=== PATIENT | female | born 1995 | race Caucasian/White ===

== ENCOUNTER 2017-03-09 03:08 | Inpatient (IN) | payer MEDICAID, OTHER ==
[~2017-03-09] VITALS: Ht 165.1 cm; Wt 47.2 kg
[~2017-03-09 03:08] MED LIST: CYCL-36 PO; OXYC1SOL5 PO; RIVA10 PO; WALKER STANDARD; Z.0.WHEELELR
[2017-03-09 03:58] LABS: AUTOMATED NEUTROPHIL # 4.2 TH/MM3 (1.8-7.7); BASOPHIL # 0.1 TH/MM3 (0-0.2); BASOPHIL % 0.8 % (0.0-2.0); EOSINOPHIL # 0.2 TH/MM3 (0-0.4); EOSINOPHIL % 2.3 % (0.0-4.0); HEMATOCRIT 38.3 % (35.0-46.0); HEMO FLAGS DIFF FINAL; LYMPH % 44.8 % (9.0-44.0); LYMPHOCYTE # 4.3 TH/MM3 (1.0-4.8); MEAN CELL VOLUME 97.8 FL (80.0-100.0); MEAN CORPUSCULAR HEMOGLOBIN 33.1 PG (27.0-34.0); MEAN CORPUSCULAR HGB CONC 33.9 % (32.0-36.0); MONO % 7.6 % (0.0-8.0); NEUT % 44.5 % (16.0-70.0); PLATELET COUNT 330 TH/MM3 (150-450); RED BLOOD COUNT 3.91 MIL/MM3 (4.00-5.30); WHITE BLOOD COUNT 9.5 TH/MM3 (4.0-11.0)
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
[2017-03-09 04:07] VITALS: BP 121/81; PULSE 96; RESP 18; TEMP 98.6; O2SAT 98
[2017-03-09 04:17] LABS: BICARBONATE 27.8 MEQ/L (21.0-32.0); POTASSIUM 3.5 MEQ/L (3.5-5.1)
[2017-03-09] MEDS ORDERED: LORazepam 1 MG TAB PO ONE (06:30)
[2017-03-09 07:34] VITALS: BP 124/79; PULSE 88; RESP 15; O2SAT 97
[2017-03-09] MEDS ORDERED: NICOTINE 21 MG/24 HR PATCH T-DERMAL ONE (08:15)
[2017-03-09] MEDS ORDERED: LORazepam 2 MG TAB PO PRN (10:30)
[2017-03-09] MEDS ORDERED: ACETAMINOPHEN 325 MG TAB PO PRN (10:30)
[2017-03-09] MEDS ORDERED: ALUMINUM/MAGNESIUM/SIMETH 30 ML CUP PO PRN (10:30)
[2017-03-09] MEDS ORDERED: LORazepam 1 MG TAB PO PRN (10:30)
[2017-03-09] MEDS ORDERED: BENZTROPINE MESYLATE 1 MG TAB PO PRN (10:30)
[2017-03-09] MEDS ORDERED: FLUMAZENIL 0.5 MG/5 ML VIAL IV PUSH PRN (10:30)
[2017-03-09] MEDS ORDERED: LORazepam 2 MG/ML VIAL IV PUSH PRN ×4 (10:30)
[2017-03-09] MEDS ORDERED: diphenhydrAMINE HCL 50 MG CAP PO PRN (10:30)
[2017-03-09] MEDS ORDERED: MAGNESIUM HYDROXIDE SUSP 30 ML CUP PO PRN (10:30)
[2017-03-09] MEDS ORDERED: hydrOXYzine HCL 50 MG TAB PO PRN (10:30)
[2017-03-09] MEDS ORDERED: BENZTROPINE MESYLATE 2 MG/2 ML VIAL IM PRN (10:30)
[2017-03-09 11:51] VITALS: BP 110/71; PULSE 95; RESP 18; TEMP 98.3; O2SAT 100
[2017-03-10] MEDS ORDERED: THIAMINE HCL 100 MG TAB PO SCH (09:00)
[2017-03-10] MEDS ORDERED: REMOVE OLD PATCH T-DERMAL SCH (09:00)
[2017-03-10] MEDS ORDERED: FOLIC ACID 1 MG TAB PO SCH (09:00)
[2017-03-10] MEDS ORDERED: NICOTINE 21 MG/24 HR PATCH T-DERMAL SCH (09:00)
[2017-03-10 10:00] LABS: AST (GOT) 62 U/L (16-38)
[2017-03-10 10:11] LABS: ALKALINE PHOSPHATASE 115 U/L (45-117); ALT (GPT) 92 U/L (9-42); HDL CHOLESTEROL 100.8 MG/DL (40.0-60.0); INDIRECT BILIRUBIN 0.5 MG/DL (0.0-0.8); LDL CHOLESTEROL 46 MG/DL (0-99); TOTAL BILIRUBIN ADULT 0.7 MG/DL (0.2-1.0)
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
[2017-03-10] MEDS ORDERED: GNP100TA3 PO (12:33)
[2017-03-10] MEDS ORDERED: FOLI1TAB6 PO (12:33)
[2017-03-10 18:05] LABS: HEMOGLOBIN A1b 0.7 %; HEMOGLOBIN Ao 86.9 %; HEMOGLOBIN F 0.9 %; HEMOGLOBIN LA1C 1.8 %; HEMOGLOBIN P3 3.3 %
== END 2017-03-10 14:00 | disposition home or self-care (01) | DRG 882 ==
LOC: NEPD 03:08 → NEDA 10:03 → H270 11:00
PROVIDERS: ADMIT Psychiatry & Neurology Psychiatry; ATTEND Psychiatry & Neurology Psychiatry
DX: F43.25 Adjustment disorder with mixed disturbance of emotions and conduct (principal); F41.1 Generalized anxiety disorder; F12.90 Cannabis use, unspecified, uncomplicated; F19.10 Other psychoactive substance abuse, uncomplicated; F43.10 Post-traumatic stress disorder, unspecified; Z72.0 Tobacco use; Z79.01 Long term (current) use of anticoagulants; Z81.8 Family history of other mental and behavioral disorders; Z91.410 Personal history of adult physical and sexual abuse
CPT/HCPCS: 80048; 80061; 80076; 80307; 83036; 84443; 84703; 85025

== ENCOUNTER 2017-10-12 22:28 | Emergency (ER) | payer OTHER ==
[~2017-10-12] VITALS: Ht 160 cm; Wt 55.0 kg
[~2017-10-12 22:28] MED LIST changes: -CYCL-36 PO; +FOLI1TAB6 PO; -OXYC1SOL5 PO; -RIVA10 PO; +THIA100 PO; -WALKER STANDARD; -Z.0.WHEELELR
[2017-10-12] MEDS ORDERED: LORazepam 2 MG/ML VIAL IM ONE (23:00)
--- NOTE | 2017-10-12 23:03 | PD ---
HPI Chief Complaint: Psychiatric Symptoms Time Seen by Provider: 22:47 Travel History International Travel<30 days: No Contact w/Intl Traveler<30days: No Traveled to known affect area: No History of Present Illness HPI 22-year-old female was brought to the emergency department under Salas act for psychiatric evaluation. Patient got into an argument with her boyfriend. She went outside and contacted her sister. She made comments to her sister about not wanting to go on anymore. Her sister contacted police who came and placed the patient under Salas act. Patient states she has been drinking alcohol tonight. She denies suicidal homicidal ideations. She states she was just upset and confiding in her sister. She has no other symptoms to report at this time. [facility] Past Medical History Asthma: Yes Cancer: No Cardiovascular Problems: No Endocrine: No Genitourinary: No Immune Disorder: No Musculoskeletal: No Neurologic: No Psychiatric: No Reproductive: No Respiratory: No Immunizations Current: No Seizures: Yes Past Surgical History Abdominal Surgery: No Ear Surgery: No Endocrine Surgery: No Eye Surgery: No Genitourinary Surgery: No Gynecologic Surgery: No Oral Surgery: No Thoracic Surgery: No Social History Alcohol Use: Yes (wine with dinner) Tobacco Use: Yes Substance Use: Yes Allergies-Medications (Allergen,Severity, Reaction): Coded Allergies: banana (Verified Allergy, Unknown, 03/09/17) Per pt. Reported Meds & Prescriptions Reported Meds & Active Scripts Active Gnp Vitamin B-1 (Thiamine HCl) 100 Mg Tab 100 Mg PO DAILY 30 Days Folic Acid 1 Mg Tablet 1 Mg PO DAILY 30 Days Review of Systems ROS Limitations: Intoxication Except as stated in HPI: all other systems reviewed are Neg Physical Exam Exam Limitations: Intoxication Narrative GENERAL: Well-nourished female patient, in no acute distress. SKIN: Focused skin assessment warm/dry. HEAD: Atraumatic. Normocephalic. EYES: Pupils equal and round. No scleral icterus. No injection or drainage. ENT: No nasal bleeding or discharge. Mucous membranes pink and moist. NECK: Trachea midline. No JVD. CARDIOVASCULAR: Elevated rate and rhythm. No murmur appreciated. RESPIRATORY: No accessory muscle use. Clear to auscultation. Breath sounds equal bilaterally. GASTROINTESTINAL: Abdomen soft, non-tender, nondistended. Hepatic and splenic margins not palpable. MUSCULOSKELETAL: No obvious deformities. No clubbing. No cyanosis. No edema. NEUROLOGICAL: Awake and alert. No obvious cranial nerve deficits. Motor grossly within normal limits. Normal speech. Data Data Last Documented VS Vital Signs Date Time Temp Pulse Resp B/P (MAP) Pulse Ox O2 Delivery O2 Flow Rate FiO2 10/12/17 23:15 98.5 99 16 117/64 (81) 96 Room Air Orders Orders Complete Blood Count With Diff (10/12/17 22:48) Thyroid Stimulating Hormone (10/12/17 22:48) Basic Metabolic Panel (Bmp) (10/12/17 22:48) Psych Screen (10/12/17 22:48) Lorazepam Inj (Ativan Inj) (10/12/17 23:00) Drug Screen, Random Urine (10/12/17 22:48) Alcohol (Ethanol) (10/12/17 22:48) Nicotine 21 Mg Patch.24 Hr (Habitrol 21 (10/13/17 00:15) Labs Laboratory Tests Test 10/13/17 01:05 White Blood Count 12.3 TH/MM3 Red Blood Count 3.40 MIL/MM3 Hemoglobin 11.3 GM/DL Hematocrit 33.3 % Mean Corpuscular Volume 98.1 FL Mean Corpuscular Hemoglobin 33.3 PG Mean Corpuscular Hemoglobin Concent 34.0 % Red Cell Distribution Width 12.4 % Platelet Count 312 TH/MM3 Mean Platelet Volume 7.5 FL Neutrophils (%) (Auto) 52.8 % Lymphocytes (%) (Auto) 36.5 % Monocytes (%) (Auto) 7.4 % Eosinophils (%) (Auto) 2.7 % Basophils (%) (Auto) 0.6 % Neutrophils # (Auto) 6.5 TH/MM3 Lymphocytes # (Auto) 4.5 TH/MM3 Monocytes # (Auto) 0.9 TH/MM3 Eosinophils # (Auto) 0.3 TH/MM3 Basophils # (Auto) 0.1 TH/MM3 CBC Comment DIFF FINAL Differential Comment Blood Urea Nitrogen 8 MG/DL Creatinine 0.67 MG/DL Random Glucose 100 MG/DL Calcium Level 8.1 MG/DL Sodium Level 142 MEQ/L Potassium Level 3.3 MEQ/L Chloride Level 106 MEQ/L Carbon Dioxide Level 27.4 MEQ/L Anion Gap 9 MEQ/L Estimat Glomerular Filtration Rate 111 ML/MIN Thyroid Stimulating Hormone 3rd Gen 0.974 uIU/ML Ethyl Alcohol Level 103 MG/DL [facility] Medical Decision Making Medical Screen Exam Complete: Yes Emergency Medical Condition: Yes Medical Record Reviewed: Yes Differential Diagnosis Mood disorder versus personality disorder versus substance abuse versus adjustment reaction disorder Narrative Course 22-year-old female presents emergency department under Salas act for psychiatric evaluation. Patient is tearful. She admits to drinking alcohol this evening. Denies suicidal or homicidal ideations. Patient presents in 4 point restraints as she is combative with staff prior to arrival. She continues to be combative with staff here. She is transferred to the bed where violent restraints remain in place. She is medicated to help her calm down. Laboratory Tests Test 10/13/17 01:05 White Blood Count 12.3 TH/MM3 Red Blood Count 3.40 MIL/MM3 Hemoglobin 11.3 GM/DL Hematocrit 33.3 % Mean Corpuscular Volume 98.1 FL Mean Corpuscular Hemoglobin 33.3 PG Mean Corpuscular Hemoglobin Concent 34.0 % Red Cell Distribution Width 12.4 % Platelet Count 312 TH/MM3 Mean Platelet Volume 7.5 FL Neutrophils (%) (Auto) 52.8 % Lymphocytes (%) (Auto) 36.5 % Monocytes (%) (Auto) 7.4 % Eosinophils (%) (Auto) 2.7 % Basophils (%) (Auto) 0.6 % Neutrophils # (Auto) 6.5 TH/MM3 Lymphocytes # (Auto) 4.5 TH/MM3 Monocytes # (Auto) 0.9 TH/MM3 Eosinophils # (Auto) 0.3 TH/MM3 Basophils # (Auto) 0.1 TH/MM3 CBC Comment DIFF FINAL Differential Comment Blood Urea Nitrogen 8 MG/DL Creatinine 0.67 MG/DL Random Glucose 100 MG/DL Calcium Level 8.1 MG/DL Sodium Level 142 MEQ/L Potassium Level 3.3 MEQ/L Chloride Level 106 MEQ/L Carbon Dioxide Level 27.4 MEQ/L Anion Gap 9 MEQ/L Estimat Glomerular Filtration Rate 111 ML/MIN Thyroid Stimulating Hormone 3rd Gen 0.974 uIU/ML Ethyl Alcohol Level 103 MG/DL Lab work is with mild leukocytosis of 12.3. Patient has mild hypokalemia 3.3. EtOH is 103. Patient is medically cleared to undergo psychiatric screening for further evaluation and disposition. Mental health screening discussed with the patient. Psychiatric screen ordered. Diagnosis Primary Impression: Adjustment disorder, unspecified Qualified Codes: F43.20 - Adjustment disorder, unspecified Josseiln Huffman Oct 12, 2017 23:03
[2017-10-12 23:15] VITALS: BP 117/64; PULSE 99; RESP 16; TEMP 98.5; O2SAT 96
[2017-10-13] MEDS ORDERED: NICOTINE 21 MG/24 HR PATCH T-DERMAL ONE (00:15)
[2017-10-13 01:23] LABS: AUTOMATED NEUTROPHIL # 6.5 TH/MM3 (1.8-7.7); BASOPHIL # 0.1 TH/MM3 (0-0.2); BASOPHIL % 0.6 % (0.0-2.0); EOSINOPHIL # 0.3 TH/MM3 (0-0.4); EOSINOPHIL % 2.7 % (0.0-4.0); HEMATOCRIT 33.3 % (35.0-46.0); HEMOGLOBIN 11.3 GM/DL (11.6-15.3); LYMPH % 36.5 % (9.0-44.0); LYMPHOCYTE # 4.5 TH/MM3 (1.0-4.8); MEAN CELL VOLUME 98.1 FL (80.0-100.0); MEAN CORPUSCULAR HEMOGLOBIN 33.3 PG (27.0-34.0); MEAN PLATELET VOLUME 7.5 FL (7.0-11.0); MONO % 7.4 % (0.0-8.0); MONOCYTE # 0.9 TH/MM3 (0-0.9); NEUT % 52.8 % (16.0-70.0); PLATELET COUNT 312 TH/MM3 (150-450); RED CELL DISTRIBUTION WIDTH 12.4 % (11.6-17.2); WHITE BLOOD COUNT 12.3 TH/MM3 (4.0-11.0)
[2017-10-13 01:45] LABS: BICARBONATE 27.4 MEQ/L (21.0-32.0); CALCIUM 8.1 MG/DL (8.5-10.1); CREATININE 0.67 MG/DL (0.50-1.00)
[2017-10-13 10:07] VITALS: BP 111/60; PULSE 82; RESP 16; O2SAT 98
[2017-10-13 11:00] VITALS: BP 102/57; PULSE 81; RESP 20; O2SAT 99
[2017-10-13 13:47] LABS: ALBUMIN 3.5 GM/DL (3.4-5.0); DIRECT BILIRUBIN ADULT 0.1 MG/DL (0.0-0.2)
[2017-10-13 13:49] LABS: INDIRECT BILIRUBIN 0.2 MG/DL (0.0-0.8); TOTAL BILIRUBIN ADULT 0.3 MG/DL (0.2-1.0); TOTAL PROTEIN 6.4 GM/DL (6.4-8.2)
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
--- NOTE | 2017-10-13 17:53 | PD ---
Physical Exam Time Seen by Provider: 17:52 RIC Mccord has evaluated patient, lifted Salas act and cleared the patient for discharge. Data Data Last Documented VS Vital Signs Date Time Temp Pulse Resp B/P (MAP) Pulse Ox O2 Delivery O2 Flow Rate FiO2 10/13/17 11:00 81 20 102/57 (72) 99 Room Air 10/12/17 23:15 98.5 Orders Orders Complete Blood Count With Diff (10/12/17 22:48) Thyroid Stimulating Hormone (10/12/17 22:48) Basic Metabolic Panel (Bmp) (10/12/17 22:48) Psych Screen (10/12/17 22:48) Lorazepam Inj (Ativan Inj) (10/12/17 23:00) Drug Screen, Random Urine (10/12/17 22:48) Alcohol (Ethanol) (10/12/17 22:48) Nicotine 21 Mg Patch.24 Hr (Habitrol 21 (10/13/17 00:15) Diet Regular Basic (10/13/17 Breakfast) Diet Regular Basic (10/13/17 Lunch) Hepatic Functional Panel (10/13/17 13:14) Ed Urine Pregnancytest Poc (10/13/17 16:11) Diet Regular Basic (10/13/17 Dinner) Labs Laboratory Tests Test 10/13/17 01:05 10/13/17 15:45 White Blood Count 12.3 TH/MM3 Red Blood Count 3.40 MIL/MM3 Hemoglobin 11.3 GM/DL Hematocrit 33.3 % Mean Corpuscular Volume 98.1 FL Mean Corpuscular Hemoglobin 33.3 PG Mean Corpuscular Hemoglobin Concent 34.0 % Red Cell Distribution Width 12.4 % Platelet Count 312 TH/MM3 Mean Platelet Volume 7.5 FL Neutrophils (%) (Auto) 52.8 % Lymphocytes (%) (Auto) 36.5 % Monocytes (%) (Auto) 7.4 % Eosinophils (%) (Auto) 2.7 % Basophils (%) (Auto) 0.6 % Neutrophils # (Auto) 6.5 TH/MM3 Lymphocytes # (Auto) 4.5 TH/MM3 Monocytes # (Auto) 0.9 TH/MM3 Eosinophils # (Auto) 0.3 TH/MM3 Basophils # (Auto) 0.1 TH/MM3 CBC Comment DIFF FINAL Differential Comment Blood Urea Nitrogen 8 MG/DL Creatinine 0.67 MG/DL Random Glucose 100 MG/DL Calcium Level 8.1 MG/DL Sodium Level 142 MEQ/L Potassium Level 3.3 MEQ/L Chloride Level 106 MEQ/L Carbon Dioxide Level 27.4 MEQ/L Anion Gap 9 MEQ/L Estimat Glomerular Filtration Rate 111 ML/MIN Total Bilirubin 0.3 MG/DL Direct Bilirubin 0.1 MG/DL Indirect Bilirubin 0.2 MG/DL Aspartate Amino Transf (AST/SGOT) 65 U/L Alanine Aminotransferase (ALT/SGPT) 59 U/L Alkaline Phosphatase 75 U/L Total Protein 6.4 GM/DL Albumin 3.5 GM/DL Thyroid Stimulating Hormone 3rd Gen 0.974 uIU/ML Ethyl Alcohol Level 103 MG/DL Urine Opiates Screen NEG Urine Barbiturates Screen NEG Urine Amphetamines Screen NEG Urine Benzodiazepines Screen POS Urine Cocaine Screen POS Urine Cannabinoids Screen POS MDM Supervised Visit with DARIA: No Narrative Course RIC Zamora has evaluated patient, lifted Maritza rodriguez and cleared the patient for discharge. Patient contracts safety. Denies suicidal or homicidal ideations. Patient will be provided [facility] resource [facility]. Has friends and family for support. Patient was medically cleared by alternate provider prior to psych screening. Patient has been evaluated by psychiatry and and is now cleared for discharge. Diagnosis Primary Impression: Substance use disorder Additional Impression: Substance induced mood disorder Referrals: KAYKAY (Out patient) [facility] Primary Care Physician Psychiatrist Alden RODRIGUE[facility] Patient Instructions: General Instructions, Mood Disorders (ED), Polysubstance Abuse (ED) Additional Instruction: Contract safety to your self and others Follow-up with psychiatry Follow-up with primary care provider Follow-up with Reyes Miranda Return to the emergency department immediately with worsening of symptoms Med/Other Pt SpecificInfo: No Change to Meds, No Meds Exist/No RX given Disposition: 01 DISCHARGE HOME Condition: Stable Tara Ibarra Oct 13, 2017 17:53
== END 2017-10-13 18:37 | disposition home or self-care (01) ==
LOC: NEPD 22:28 → NEPJ 10-13 18:37
DX: F43.20 Adjustment disorder, unspecified (principal); F19.10 Other psychoactive substance abuse, uncomplicated; F19.94 Other psychoactive substance use, unspecified with psychoactive substance-induced mood disorder; D72.829 Elevated white blood cell count, unspecified; Z72.0 Tobacco use; Z79.899 Other long term (current) drug therapy; Z87.09 Personal history of other diseases of the respiratory system; Z86.69 Personal history of other diseases of the nervous system and sense organs; Z86.59 Personal history of other mental and behavioral disorders
CPT/HCPCS: 80048; 80076; 80307; 84443; 85025; 99283; J2060